=== PATIENT | male | born 1990 | race Caucasian/White ===

== ENCOUNTER 2019-01-02 13:27 | Emergency (ER) | payer SELFPAY ==
[2019-01-02 13:30] VITALS: RESP 16; TEMP 36.7
[2019-01-02] MEDS: Ibuprofen 600 MG TAB PO (14:43)
--- NOTE | 2019-01-02 14:48 | ED.GENADUL_ITS ---
Discharge Plan Disposition Patient Disposition: HOME Discharge Details Chief Complaint: Laceration Primary Care Provider: None,None ED Provider: Lopez Choi Home Meds and New Rx's Prescriptions: New cephalexin [Keflex] 500 mg capsule 500 mg PO TID 3 Days Qty: 9 RF: 0 Discharge Data Discharge Date/Time-TO BE ENTERED AT DEPARTURE: 01/02/19 14:56 Medical Decision Making Left ring finger laceration 1.5 cm ulnar aspect of finger,2.5 cm radial aspect. Digital block with 4 mL's of 1% lidocaine and ring tourniquet applied. Radial aspect may have slight venous injury. Otherwise all deep structures intact possible through and through injury but with thorough irrigation and mild probing it is difficult to determine as this does not seem to be a deep structure injury but there is a possibility. Wound was closed with 4 sutures on the radial aspect and 2 sutures on the ulnar aspect. Covered with bacitracin. Tdap updated. Given possible through and through injury patient placed on Keflex for 3 days. Return precautions discussed. HPI General Mode of arrival: ambulatory . Date/Time Provider Initiated Documentation: 01/02/19 14:25 . Limitations to Documentation: no limitations . Information obtained by: patient and RN notes reviewed . History of Present Illness 28 year old M presents to the emergency department with the chief complaint of finger laceration, described as moderate, with intensity rated at 7. Quality is described as sharp, and is localized to the left and upper extremity. Patient started experiencing this hour(s) (1) and it has been constant. Patient notes no other symptoms.. Patient did receive the following treatments prior to arrival, none Related Data Home Medications Medication Instructions Recorded Confirmed cephalexin [Keflex] 500 mg PO TID 3 Days #9 cap 01/02/19 Previous Rx's Medication Instructions Recorded cephalexin [Keflex] 500 mg PO TID 3 Days #9 cap 01/02/19 Allergies Allergy/AdvReac Type Severity Reaction Status Date / Time No Known Allergies Allergy Unverified 01/02/19 13:33 General Stated Complaint: Laceration BITA: 3 Review of Systems Cardiovascular Denies syncope and Denies lightheadedness Musculoskeletal Denies deformity, Denies limited range of motion and Denies numbness Integumentary/Breasts Reports as per HPI Neurologic Denies syncope, Denies numbness and Denies paresthesias PFS Social History Smoking/Tobacco Use Status: Never Alcohol Intake: never Drug use: Never Substance use type: does not use Do you feel safe at home: Yes Do you feel safe in your relationship?: Yes Exam Const General: cooperative and no acute distress Orientation: alert, awake and oriented x3 Limitations: mental status not altered Resp Effort & Inspection: normal respiratory effort and able to speak in complete sentences Cardio Rate: regular rate Rhythm: regular rhythm Neuro General: alert, awake, oriented x3, gait normal, tone normal, moves all extremities, normal light touch, pain and propioception and no focal motor deficits Motor: no movement abnormalities noted Sensory Exam: no sensory deficits noted Extrem Left upper extremity: hand Details: neuromotor exam normal, neurosensory exam abnormal Details: digital nerve sensory function abnormal Location: in the 4th digit (distal tip slight decrease in sensation), tendon exam normal, vascular exam Details: normal capillary refill, normal ROM of fingers, no swelling and laceration (4th digit to medial and lateral aspect); no crepitus Course Vital Signs Temperature 36.7 C 01/02/19 13:30 Respiratory Rate 16 01/02/19 13:30 Temperature 36.7 C 01/02/19 13:30 Respiratory Rate 16 01/02/19 13:30 Respiratory Effort Non-Labored 01/02/19 13:32 Oxygen Delivery Method Room Air 01/02/19 13:30 Oxygen Flow Rate 0 01/02/19 13:30 Pain Level 7 01/02/19 13:30
[2019-01-02 14:53] VITALS: BP 130/64; PULSE 84; RESP 16; TEMP 36.6; O2SAT 98
== END 2019-01-02 14:56 | disposition home or self-care (01) ==
PROVIDERS: Emergency Provider Nurse Practitioner Family
DX: S61.215A Laceration without foreign body of left ring finger without damage to nail, initial encounter (principal); W45.8XXA Other foreign body or object entering through skin, initial encounter
CPT/HCPCS: 12001; 90471; 99283

== ENCOUNTER 2019-01-12 10:22 | Emergency (ER) | payer SELFPAY ==
[2019-01-12 10:26] VITALS: BP 109/68; PULSE 66; RESP 20; TEMP 36.8; O2SAT 95
--- NOTE | 2019-01-12 10:35 | W.ED.GENAD ---
Discharge Plan Disposition Patient Disposition: HOME Condition: Good Discharge Details Chief Complaint: SutureRem Clinical Impression: Encounter for removal of sutures, Tingling Primary Care Provider: None,None ED Provider: Jony Saleem Discharge Instructions Additional Instructions: Your laceration has healed well. The sutures have been removed. However because of the continued tingling we will refer for orthopedic evaluation. Normally there is not much to be done about this, but sometimes nerve repair is possible. In the meantime I would recommend taking a multivitamin high in B complex vitamins. Massage the area gently daily. If you notice any redness drainage fever chills pain or weakness please return immediately. Medical Decision Making This is a pleasant 28-year-old male who presents for suture removal. 10 days ago he had a laceration to his nondominant hand ring finger, it was sutured with 6 simple interrupted sutures. Wound healing and reapproximation is excellent. Sensation is notably intact on the lateral aspect however there is still some decreased sensation and subjective tingling in the distal tip, with decreased two-point discrimination. Because of the continued tingling and decrease in sensation I do feel that referral for orthopedic evaluation is reasonable. Otherwise the wound is healed very well. All sutures were removed and he tolerated this well. No signs of tendon damage or disruption, no signs of infection. We will place an orthopedic referral for an outpatient basis. I have extensively reviewed the treatment plan and discharge instructions with the patient. I have addressed all patient concerns at this time. The patient was made aware of what symptoms to monitor for that would warrant a return to the emergency department. Discussed the plan with the patient, they demonstrate verbal understanding and agreement with our assessment and plan at this time. HPI General Date/Time Provider Initiated Documentation: 01/12/19 10:27. HPI Narrative: This is a pleasant 28-year-old male who presents for suture removal. 10 days ago he had 6 simple interrupted sutures placed for laceration. He has done well, no redness or pain. He does have tingling on the distal aspect of his ring finger on his left nondominant hand. He denies any other complaints. No other modifying factors. Related Data Allergies Allergy/AdvReac Type Severity Reaction Status Date / Time No Known Allergies Allergy Unverified 01/02/19 13:33 General Stated Complaint: SutureRem BITA: 4 Review of Systems Review of Systems All systems reviewed & are unremarkable except as noted in HPI and below [facility] Social History Smoking/Tobacco Use Status: Never Alcohol Intake: never Drug use: Never Substance use type: does not use Do you feel safe at home: Yes Do you feel safe in your relationship?: Yes Exam Narrative Exam Narrative: 1.Const: Well-nourished, Well-developed, appearing stated age 2.Eyes: PERRL, no conjunctival injection, and symmetrical lids. 3.ENT: Atraumatic external nose and ears. Moist MM. Neck: Symmetric, trachea midline, No thyromegaly. 4.CVS: +S1/S2, No murmurs or gallops. Peripheral pulses 2+ and equal in all extremities. Brisk capillary refill in all extremities. 5.RESP: Unlabored respiratory effort. Clear to auscultation bilaterally. No wheezes rales or rhonchi 6.GI: Soft, Nontender/Nondistended, No hepatosplenomegaly. No guarding or rebound. 7.MSK: Normocephalic/Atraumatic, Extremities w/o deformity or ttp No cyanosis or clubbing, Normal movement of all extremities. Normal flexion and extension of the affected finger. No signs of decreased strength. 8.Skin: Warm, Dry. No rashes or lesions. 9.Neuro: mold blower II-XII grossly intact. Sensation grossly intact, no focal neurologic deficits. Sensation is decreased on the tip of the affected ring finger on the left nondominant hand. Two-point discrimination is limited at the distal tip, greater than 5 mm. The remainder of the finger demonstrates normal sensation throughout, normal two-point discrimination up to 3 mm. No other significant abnormalities. Capillary refill brisk 10.Psych: (AAO) x3. Appropriate mood and affect Course Vital Signs Temperature 36.8 C 01/12/19 10:26 Pulse 66 01/12/19 10:26 Respiratory Rate 20 01/12/19 10:26 Blood Pressure 109/68 01/12/19 10:26 Pulse Oximetry 95 01/12/19 10:26 Temperature 36.8 C 01/12/19 10:26 Temperature Source Temporal Artery Scan 01/12/19 10:26 Pulse 66 01/12/19 10:26 Respiratory Rate 20 01/12/19 10:26 Respiratory Effort Non-Labored 01/12/19 10:26 Blood Pressure 109/68 01/12/19 10:26 Blood Pressure Position Sitting 01/12/19 10:26 Pulse Oximetry 95 01/12/19 10:26 Oxygen Delivery Method Room Air 01/12/19 10:26 Oxygen Flow Rate 0 01/12/19 10:26 Pain Level 0 01/12/19 10:26
--- NOTE | 2019-01-12 10:39 | ED.GENADUL_ITS ---
Discharge Plan Disposition Patient Disposition: HOME Condition: Good Discharge Details Chief Complaint: SutureRem Clinical Impression: Encounter for removal of sutures, Tingling Primary Care Provider: None,None ED Provider: Jony Saleem Discharge Instructions Additional Instructions: Your laceration has healed well. The sutures have been removed. However because of the continued tingling we will refer for orthopedic evaluation. Normally there is not much to be done about this, but sometimes nerve repair is possible. In the meantime I would recommend taking a multivitamin high in B complex vitamins. Massage the area gently daily. If you notice any redness drainage fever chills pain or weakness please return immediately. Medical Decision Making This is a pleasant 28-year-old male who presents for suture removal. 10 days ago he had a laceration to his nondominant hand ring finger, it was sutured with 6 simple interrupted sutures. Wound healing and reapproximation is excellent. Sensation is notably intact on the lateral aspect however there is still some decreased sensation and subjective tingling in the distal tip, with decreased two-point discrimination. Because of the continued tingling and decrease in sensation I do feel that referral for orthopedic evaluation is reasonable. Otherwise the wound is healed very well. All sutures were removed and he tolerated this well. No signs of tendon damage or disruption, no signs of infection. We will place an orthopedic referral for an outpatient basis. I have extensively reviewed the treatment plan and discharge instructions with the patient. I have addressed all patient concerns at this time. The patient was made aware of what symptoms to monitor for that would warrant a return to the emergency department. Discussed the plan with the patient, they demonstrate verbal understanding and agreement with our assessment and plan at this time. HPI General Date/Time Provider Initiated Documentation: 01/12/19 10:27 . HPI Narrative: This is a pleasant 28-year-old male who presents for suture removal. 10 days ago he had 6 simple interrupted sutures placed for laceration. He has done well, no redness or pain. He does have tingling on the distal aspect of his ring finger on his left nondominant hand. He denies any other complaints. No other modifying factors. Related Data Allergies Allergy/AdvReac Type Severity Reaction Status Date / Time No Known Allergies Allergy Unverified 01/02/19 13:33 General Stated Complaint: SutureRem BITA: 4 Review of Systems Review of Systems All systems reviewed & are unremarkable except as noted in HPI and below [facility] Social History Smoking/Tobacco Use Status: Never Alcohol Intake: never Drug use: Never Substance use type: does not use Do you feel safe at home: Yes Do you feel safe in your relationship?: Yes Exam Narrative Exam Narrative: 1.Const: Well-nourished, Well-developed, appearing stated age 2.Eyes: PERRL, no conjunctival injection, and symmetrical lids. 3.ENT: Atraumatic external nose and ears. Moist MM. Neck: Symmetric, trachea midline, No thyromegaly. 4.CVS: +S1/S2, No murmurs or gallops. Peripheral pulses 2+ and equal in all extremities. Brisk capillary refill in all extremities. 5.RESP: Unlabored respiratory effort. Clear to auscultation bilaterally. No wheezes rales or rhonchi 6.GI: Soft, Nontender/Nondistended, No hepatosplenomegaly. No guarding or rebound. 7.MSK: Normocephalic/Atraumatic, Extremities w/o deformity or ttp No cyanosis or clubbing, Normal movement of all extremities. Normal flexion and extension of the affected finger. No signs of decreased strength. 8.Skin: Warm, Dry. No rashes or lesions. 9.Neuro: medical coding instructor II-XII grossly intact. Sensation grossly intact, no focal neurologic deficits. Sensation is decreased on the tip of the affected ring finger on the left nondominant hand. Two-point discrimination is limited at the distal tip, greater than 5 mm. The remainder of the finger demonstrates normal sensation throughout, normal two-point discrimination up to 3 mm. No other sig nificant abnormalities. Capillary refill brisk 10.Psych: (AAO) x3. Appropriate mood and affect Course Vital Signs Temperature 36.8 C 01/12/19 10:26 Pulse 66 01/12/19 10:26 Respiratory Rate 20 01/12/19 10:26 Blood Pressure 109/68 01/12/19 10:26 Pulse Oximetry 95 01/12/19 10:26 Temperature 36.8 C 01/12/19 10:26 Temperature Source Temporal Artery Scan 01/12/19 10:26 Pulse 66 01/12/19 10:26 Respiratory Rate 20 01/12/19 10:26 Respiratory Effort Non-Labored 01/12/19 10:26 Blood Pressure 109/68 01/12/19 10:26 Blood Pressure Position Sitting 01/12/19 10:26 Pulse Oximetry 95 01/12/19 10:26 Oxygen Delivery Method Room Air 01/12/19 10:26 Oxygen Flow Rate 0 01/12/19 10:26 Pain Level 0 01/12/19 10:26
[2019-01-12 16:34] VITALS: BP 109/68; PULSE 66; RESP 20; TEMP 36.8; O2SAT 95
== END 2019-01-12 10:46 | disposition home or self-care (01) ==
PROVIDERS: Emergency Provider Student in an Organized Health Care Education/Training Program
DX: R20.2 Paresthesia of skin (principal); S61.215D Laceration without foreign body of left ring finger without damage to nail, subsequent encounter; X58.XXXD Exposure to other specified factors, subsequent encounter; Z48.02 Encounter for removal of sutures
CPT/HCPCS: 99282

== ENCOUNTER 2020-02-23 10:11 | Emergency (ER) | payer SELFPAY ==
[2020-02-23] VITALS (16 sets, daily range): BP systolic 119–133; BP diastolic 71–81; PULSE 55–78; RESP 11–19; TEMP 36; O2SAT 97–99
--- NOTE | 2020-02-23 10:00 | RT.EKG_ITS ---
APPROVED REPORT Exam: Resting ECG Patient Location: E HR:64 bpm ECG Measurements Heart Rate 64 AXIS MS 141 P 72 QRSd 94 QRS 59 QT 387 T 34 QTc 399 <Conclusion> Sinus rhythm...normal P axis, V-rate 60- 99 ST elev, probable normal early repol pattern...ST elevation, age<55
--- NOTE | 2020-02-23 10:30 | W.ED.GENAD ---
Discharge Plan Disposition Patient Disposition: HOME Condition: Stable Discharge Details Chief Complaint: Chest Pain Clinical Impression: Pleuritic chest pain Primary Care Provider: None,None ED Provider: Lydia Mendiola Home Meds and New Rx's Prescriptions: New ibuprofen 800 mg tablet 800 mg PO Q8H PRN (Reason: pain) 7 Days Qty: 20 RF: 0 Discharge Instructions Instructions: Chest Pain (ED), Costochondritis (ED) Additional Instructions: Follow up with primary care provider in 3-5 days. Return to ED sooner if any worsening or concerns. Increase oral fluids. Please take Tylenol or Ibuprofen with food every 4-6 hours as needed for pain and swelling. Return to the ED for any worsening chest pain, increased shortness of breath, sweatiness or any concerns. Discharge Data Discharge Date/Time-TO BE ENTERED AT DEPARTURE: 02/23/20 12:12 Medical Decision Making 29-year-old male presents to the ER with left-sided chest pain which he describes as sharp in nature began this morning around 8:00 upon awakening. He describes pain as sharp intermittent and stabbing and nonradiating. Worse with inspiration and movement. Denies any nausea vomiting, shortness of breath or cough. 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 No significant family history or past medical history. Denies any fever chills. At this time work-up ordered including CBC, CMP, mag, troponin x2, EKG was obtained and read by Digna Peterson MD see her official reading. Chest x-ray two-view ordered aspirin 325 and 50 mg Toradol. Frontal diagnosis includes but not limited to [place], CAD, NSTEMI, pneumothorax, pleurisy, pneumonia, PE TECHNIQUE: Imaging protocol: XR of the chest Views: 2 views. COMPARISON: No relevant prior studies available. FINDINGS: Lungs: Unremarkable. No consolidation. Pleural space: Unremarkable. No pleural effusion. No pneumothorax. Heart/Mediastinum: Unremarkable. No cardiomegaly. Bones/joints: Unremarkable. IMPRESSION: No acute findings. 1151: Upon patient reevaluation his pain is much improved after the Toradol injection, initial work-up is largely benign, chest x-ray shows nothing acute as noted above. Initial troponin is negative CBC and CMP are largely within normal limits. Glucose was 115, total bilirubin 1.6. At this time I feel it is safe to cancel a second troponin, he is remained hemodynamically stable throughout stay. Normal sinus rhythm with no STEMI. Will place patient on follow-up list for PCP. Discussed home care including taking ibuprofen 8 or milligrams 4 times a day as needed for pain rest ice and follow-up. Discuss strict return instructions, verbalized understanding. HPI General Mode of arrival: ambulatory. Date/Time Provider Initiated Documentation: 02/23/20 10:14. Limitations to Documentation: no limitations. Information obtained by: patient. HPI Narrative: 29-year-old male presents to the ER with left-sided chest pain which he describes as sharp in nature began this morning around 8:00 upon awakening. He describes pain as sharp intermittent and stabbing and nonradiating. Worse with inspiration and movement. Denies any nausea vomiting, shortness of breath or cough. 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 No significant family history or past medical history. Denies any fever chills. Related Data Home Medications Medication Instructions Recorded Confirmed ibuprofen 800 mg PO Q8H PRN 7 Days #20 tab 02/23/20 Previous Rx's Medication Instructions Recorded ibuprofen 800 mg PO Q8H PRN 7 Days #20 tab 02/23/20 Allergies Allergy/AdvReac Type Severity Reaction Status Date / Time No Known Allergies Allergy Unverified 02/23/20 10:19 General Stated Complaint: Chest Pain BITA: 2 Review of Systems Narrative: Constitutional: Negative for weight loss, alert and oriented, well groomed, normal body habitus, appears comfortable. HEENT: Denies trauma, headaches, blurry vision, nasal discharge, sore throat, trouble swallowing. Chest: Denies palpitations, irregular rhythm, hypertension. Reports left-sided sharp chest pain intermittent since 830. Respiratory: Denies cough, hemoptysis. Reports pain with deep breathing. GI: Denies abdominal pain, nausea, vomiting, diarrhea, constipation. : Denies dysuria, hematuria, flank pain, rectal bleeding. Neuro: Denies dizziness, blurry vision, weakness, syncope, headache or facial numbness. Hematologic: Denies easy bruising, intolerance to heat or cold, hair loss. [facility] Social History Smoking/Tobacco Use Status: Never Alcohol Intake: current Alcohol Intake frequency: 3 or more drinks per day Drug use: Never Substance use type: does not use Do you feel safe at home: Yes Do you feel safe in your relationship?: Yes Exam Narrative Exam Narrative: Constitutional: Alert and oriented x3. Appears stated age. Normal body habitus. Head: Normocephalic, no trauma. Eyes: Pupils PERRLA, Red reflex noted, EOM's intact. Eyelids symmetrical without lesions, discharge, or swelling. ENT: Bilateral TM's WNL, External ear normal to inspection, no mastoid TTP, swelling, or erythema, Nasal turbinates WNL, no nasal discharge. Normal dentition, Posterior pharynx WNL, no exudate. Chest: RRR, Normal S1, S2, distal pulses intact. Chest pain is reproducible with palpation on the left side. No palpable rib fractures, crepitus or step-off. Resp: Lungs clear to auscultation bilaterally, no wheezes, rales, or rhonchi. Slightly diminished on the left. Musculoskeletal: Normal gait, 5/5 strength to all four extremities. Skin: No suspicious rashes or lesions. Capillary refill less than 2 sec. Neurologic: Cranial nerves II-XII intact. Alert and oriented x 3. DTR's intact. Hematologic/Lymphatic: No ecchymosis, no lymphadenopathy. Course Vital Signs Vital signs: Vital Signs Temperature 36 C L 02/23/20 10:16 Pulse 71 02/23/20 10:16 Respiratory Rate 16 02/23/20 10:16 Blood Pressure 133/81 02/23/20 10:16 Pulse Oximetry 99 02/23/20 10:16 Temperature 36 C L 02/23/20 10:16 Pulse 71 02/23/20 10:16 Respiratory Rate 16 02/23/20 10:16 Respiratory Effort Non-Labored 02/23/20 10:18 Blood Pressure 133/81 02/23/20 10:16 Blood Pressure Position Supine 02/23/20 10:16 Pulse Oximetry 99 02/23/20 10:16 Oxygen Delivery Method Room Air 02/23/20 10:16 Oxygen Flow Rate 0 02/23/20 10:16 Pain Level 8 02/23/20 10:16
[2020-02-23] MEDS: Ketorolac 15 MG/ML VIAL IVP (10:46)
[2020-02-23] MEDS: Aspirin 81 MG CHEW 324 MG CH (10:46)
[2020-02-23 10:52] LABS: Abs Immature Grans 0.01 k/cumm (0.0-0.09); Absolute Basophil Count 0.01 k/cumm (0.0-0.2); Absolute Lymphocyte Count 2.39 k/cumm (1.2-3.4); Absolute Monocyte Count 0.45 k/cumm (0.11-0.7); Absolute Neutrophil Count 2.61 k/cumm (1.2-6.7); Basophils % 0.2; Eosinophils % 3.5; HCT 44.6 % (40.0-50.0); HGB 16.1 g/dL (13.5-17.5); Immature Grans % 0.2 %; Lymphocytes % 42.2; Mean Corp. HGB Concentration 36.1 g/dL (32.0-36.0); Mean Corpuscular Hemoglobin 32.9 pg (27.0-33.0); Mean Platelet Volume 11.2 fL (8.0-11.0); Monocytes % 7.9; Platelet Count 207 x1000/uL (130-400); RBC Distribution Width 11.9 % (11.8-14.1); White Blood Cell Count 5.67 k/cumm (4.4-10.8)
--- NOTE | 2020-02-23 11:08 | DI.RAD_ITS ---
EXAM: XR CHEST 2V PA LATERAL CLINICAL HISTORY: Left sided chest pain TECHNIQUE: 2D digital imaging was performed. COMPARISON: No exams were available for comparison FINDINGS: MEDIASTINUM: Normal. HEART: Normal. PULMONARY VASCULATURE: Normal. LUNGS: Clear. PLEURAL SPACE: No pleural effusion or pneumothorax. BONE:Within normal limits for the patient's age. OTHER FINDINGS:Normal. IMPRESSION: No acute pulmonary findings. DATA REPOSITORY: RADIATION DOSE DELIVERED:
[2020-02-23 11:10] LABS: ALT 21 U/L (16-63); AST 20 U/L (15-37); Albumin 4.7 g/dL (3.4-5.0); Alkaline Phosphatase 56 U/L (46-116); Anion Gap 7.7 mmol/L (3-11); BUN 16 mg/dL (7-18); Bilirubin, Total 1.6 mg/dL (0.2-1.0); CO2 30.3 mmol/L (21.0-32.0); CREATININE 1.09 mg/dL (0.70-1.30); Chloride 102 mmol/L (98-107); Glucose 115 mg/dL (74-106); Magnesium 2.2 mg/dL (1.8-2.4); Potassium 3.9 mmol/L (3.5-5.1); Sodium 140 mmol/L (136-145); Total Protein 7.8 g/dL (6.4-8.2)
[2020-02-23 11:11] LABS: Troponin I < 0.05 ng/mL (<0.06)
--- NOTE | 2020-02-23 11:18 | DI.VRAD_ITS ---
PROCEDURE INFORMATION: Exam: XR Chest, 2 Views Exam date and time: 02/23/2020 11:05 AM Age: 29 years old Clinical indication: Other: Left sided chest pain TECHNIQUE: Imaging protocol: XR of the chest Views: 2 views. COMPARISON: No relevant prior studies available. FINDINGS: Lungs: Unremarkable. No consolidation. Pleural space: Unremarkable. No pleural effusion. No pneumothorax. Heart/Mediastinum: Unremarkable. No cardiomegaly. Bones/joints: Unremarkable. IMPRESSION: No acute findings. Dictated and Authenticated by: Iliana Robertson MD. Ordering:STACY Freeman MD
[2020-02-23 11:25] LABS: D-Dimer 118 ng/mlFEU (<500)
--- NOTE | 2020-02-23 11:57 | NUR.NOTE ---
Referral to Care Management to establish pcp also chest pain complaint.Nursing Note:
--- NOTE | 2020-02-25 10:45 | CMPROGNOTE_ITS ---
- If Service Date Differs Date of service: 02/25/20 Time of Service: 10:45 Care Management Progress Note coordinates a referral to Dr. Bunn, [facility], of [facility], to assist patient in establishing care with a primary care doctor. A referral is also made to [facility] to enlist their help in exploring health insurance options, as Lanre is currently uninsured. Lanre is aware of both referrals.
== END 2020-02-23 12:12 | disposition home or self-care (01) ==
LOC: ER 11:58
PROVIDERS: Emergency Provider Registered Nurse Emergency
DX: R07.81 Pleurodynia (principal)
CPT/HCPCS: 80053; 93005; 96374; 99284; 71046; 83735; 84484; 85025; 85379; 93010; J1885

== ENCOUNTER 2021-02-23 21:52 | Emergency (ER) | payer SELFPAY ==
--- NOTE | 2021-02-23 21:45 | RT.EKG_ITS ---
APPROVED REPORT Exam: Resting ECG Reason for Exam: Palpitations Patient Location: E HR:73 bpm ECG Measurements Heart Rate 73 AXIS ME 146 P 74 QRSd 92 QRS 66 QT 368 T 42 QTc 407 Conclusion Sinus rhythm...normal P axis, V-rate 60- 99 Physician: elevation in V3, unchanged from prior, likely repol. no stemi
[2021-02-23 22:04] VITALS: BP 139/79; PULSE 87; RESP 16; TEMP 37.1; O2SAT 97
--- NOTE | 2021-02-23 22:13 | ED.GENADUL_ITS ---
Discharge Plan Disposition Patient Disposition: HOME Condition: Stable Discharge Details Clinical Impression: Intermittent palpitations Primary Care Provider: Chasidy Ortiz ED Provider: Lydia Mendiola Home Meds and New Rx's Prescriptions: No Action No Known Home Meds RF: 0 Discharge Instructions Instructions: Heart Palpitations (ED) Additional Instructions: The cardiac work-up and lab are all within normal limits. I do suspect that these are what we talked about is occasional ventricular beat which are very common and can be caused by various things including dehydration, energy drinks, caffeine. Follow up with primary care provider in 3-5 days if needed. Return to ED sooner if any worsening or concerns. Increase oral fluids. Referrals: Chasidy Ortiz, TECHNOLOGY DEVELOPMENT INTERN [Primary Care Provider] - Discharge Data Discharge Date/Time-TO BE ENTERED AT DEPARTURE: 02/23/21 23:15 Medical Decision Making 30-year-old male presents to the ER with chief complaint of palpitations which have become more frequent over the last couple of. Patient reports 1 abnormal beat every few minutes in his chest. He reports associated tightness, denies any dizziness, shortness of breath intolerance to exercise. He reports he has had increased intake of energy drinks to a week since starting the new job he also drinks a cup of coffee every morning. He does endorse having 1 beer earlier today, denies any other associated symptoms. No cardiac history. EKG was reviewed by Wilmer Saleem ER attending, please see his official report review, normal sinus rhythm. Labs are largely unremarkable troponin within normal limit, patient has no complaints of chest pain TSH also within normal limits. Discussed lab results with patient who verbalizes understanding discuss strict return instructions and home care and follow-up with PCP. Patient remained hemodynamically stable throughout stay. HPI General Mode of arrival: ambulatory . Date/Time Provider Initiated Documentation: 02/23/21 21:54 . Limitations to Documentation: no limitations . Information obtained by: patient and RN notes reviewed . HPI Narrative: 30-year-old male presents to the ER with chief complaint of palpitations which have become more frequent over the last couple of. Patient reports 1 abnormal beat every few minutes in his chest. He reports associated tightness, denies any dizziness, shortness of breath intolerance to exercise. He reports he has had increased intake of energy drinks to a week since starting the new job he also drinks a cup of coffee every morning. He does endorse having 1 beer earlier today, denies any other associated symptoms. No cardiac history. Related Data Home Medications Medication Instructions Recorded Confirmed Unknown [No Known Home Meds] 04/28/20 02/23/21 Allergies Allergy/AdvReac Type Severity Reaction Status Date / Time No Known Allergies Allergy Verified 04/28/20 08:02 General Stated Complaint: Palpitatns BITA: 3 Review of Systems Narrative: Constitutional: Negative for weight loss, alert and oriented, well groomed, normal body habitus, appears comfortable. HEENT: Denies trauma, headaches, blurry vision, nasal discharge, sore throat, trouble swallowing. Chest: Denies chest pain, irregular rhythm, hypertension. Positive palpitations. Respiratory: Denies Shortness of breath, cough, hemoptysis. GI: Denies abdominal pain, nausea, vomiting, diarrhea, constipation. : Denies dysuria, hematuria, flank pain, rectal bleeding. Neuro: Denies dizziness, blurry vision, weakness, syncope, headache or facial numbness. Hematologic: Denies easy bruising, intolerance to heat or cold, hair loss. [facility] Medical History Alcohol intake above recommended sensible limits without complication Costochondritis Family History Mother No problems noted. Father Alcohol abuse Sister No problems noted. Brother No problems noted. Brother No problems noted. Brother No problems noted. Son No problems noted. Daughter No problems noted. Maternal Grandfather , 30'S Cancer Paternal Grandfather No problems noted. Maternal Grandmother , 70'S No problems noted. Paternal Grandmother Breast cancer Social History Smoking/Tobacco Use Status: Never Second Hand Exposure: Yes Smoking risk assessment performed?: Yes Alcohol Intake: current Alcohol Intake frequency: 3 or more drinks per day Drug use: Daily Substance use type: marijuana Caregiver/Support person: No Household members: spouse and children Housing: apartment Pets and animals: Yes Pets and animals: cat(s) Sexually active: Yes Do you think of yourself as: straight/heterosexual Current gender identity: male What is your relationship status?: How often do you talk on the phone with friends or family?: three or more times per week How often do you get together with friends or relatives?: once per week How often do you attend evangelical or christianity services?: decline to answer Do you belong to any clubs or organized social groups?: no Panel score (0-1 are the most socially isolated patients): 2 Kristen/Christian: NONE Special kristen needs: No Seatbelt use: always Helmet use: Yes Helmet use: always Drive intox or ride w/intox 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 Appears stated age. Normal body habitus. Head: Normocephalic, no trauma. Eyes: Pupils PERRLA, Red reflex noted, EOM's intact. Eyelids symmetrical without lesions, discharge, or swelling. ENT: Bilateral TM's WNL, External ear normal to inspection, no mastoid TTP, swelling, or erythema, Nasal turbinates WNL, no nasal discharge. Normal dentition, Posterior pharynx WNL, no exudate. Chest: RRR, Normal S1, S2, distal pulses intact. Visualized 1 occasional PVC during my exam. Resp: Lungs clear to auscultation bilaterally, no wheezes, rales, or rhonchi. Musculoskeletal: Normal gait, 5/5 strength to all four extremities. Skin: No suspicious rashes or lesions. Capillary refill less than 2 sec. Neurologic: Cranial nerves II-XII intact. Alert and oriented x 3. DTR's intact. Hematologic/Lymphatic: No ecchymosis, no lymphadenopathy. Course Vital Signs Vital signs: Vital Signs Temperature 37.1 C 02/23/21 22:04 Pulse 87 02/23/21 22:04 Respiratory Rate 16 02/23/21 22:04 Blood Pressure 139/79 02/23/21 22:04 Pulse Oximetry 97 02/23/21 22:04 Temperature 37.1 C 02/23/21 22:04 Temperature Source Tympanic 02/23/21 22:04 Pulse 87 02/23/21 22:04 Respiratory Rate 16 02/23/21 22:04 Blood Pressure 139/79 02/23/21 22:04 Blood Pressure Position Sitting 02/23/21 22:04 Pulse Oximetry 97 02/23/21 22:04 Oxygen Delivery Method Room Air 02/23/21 22:04 Oxygen Flow Rate 0 02/23/21 22:04 Pain Level 0 02/23/21 22:04
[2021-02-23] MEDS: Normal Saline 1,000 ML 1000 ML IV (22:32)
[2021-02-23 22:38] LABS: Abs Immature Grans 0.02 10^3/uL (0.0-0.06); Absolute Basophil Count 0.04 10^3/uL (0.0-0.2); Absolute Eosinophil Count 0.26 10^3/uL (0.0-0.7); Absolute Lymphocyte Count 2.37 10^3/uL (1.2-3.4); Absolute Monocyte Count 0.52 10^3/uL (0.1-0.8); Absolute Neutrophil Count 2.32 10^3/uL (1.2-6.7); Basophils % 0.7; Eosinophils % 4.7; HCT 41.8 % (40.0-50.0); HGB 14.7 g/dL (13.5-17.5); Immature Grans % 0.4; Lymphocytes % 42.9; MCH 32.2 pg (27.0-33.0); MCHC 35.2 % (32.0-36.0); MCV 91.7 fL (80-95); MPV 11.2 fL (8.0-11.0); Monocytes % 9.4; Neutrophils % 41.9; Nucleated RBC 0 %; Platelet Count 188 10^3/uL (130-400); RBC 4.56 10^6/uL (4.36-5.78); RDW 11.6 % (11.8-14.1); RDW-SD 39.1 fL; WBC 5.53 10^3/uL (4.4-10.8)
[2021-02-23 23:00] LABS: ALT 30 U/L (16-63); AST 23 U/L (15-37); Albumin 4.4 g/dL (3.4-5.0); Alkaline Phosphatase 58 U/L (46-116); Anion Gap 8.5 mmol/L (3-11); BUN 22 mg/dL (7-18); Bilirubin, Total 0.8 mg/dL (0.2-1.0); CO2 28.5 mmol/L (21.0-32.0); Chloride 104 mmol/L (98-107); Glucose 112 mg/dL (74-106); Potassium 3.7 mmol/L (3.5-5.1); Sodium 141 mmol/L (136-145); TSH (W/Ref FT4) 3.13 uIU/mL (0.36-3.74); Total Protein 7.5 g/dL (6.4-8.2); Troponin I < 0.05 ng/mL (<0.06)
[2021-02-23 23:12] VITALS: BP 139/79; PULSE 87; RESP 16; TEMP 37.1; O2SAT 97
== END 2021-02-23 23:15 | disposition home or self-care (01) ==
PROVIDERS: Emergency Provider Registered Nurse Emergency
DX: R00.2 Palpitations (principal)
CPT/HCPCS: 36415; 80053; 93005; 96360; 99284; 83735; 84443; 84484; 85025; 93010; 99283

== ENCOUNTER 2021-03-09 08:34 | Outpatient (CLI) | payer OTHER, SELFPAY ==
--- NOTE | 2021-03-24 11:43 | ZIOP_ITS ---
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 Minimum was 42, maximum 156 There were rare atrial and ventricular beats There was no atrial fibrillation, no high-grade, no pauses greater than 2 seconds Patient events corresponded to sinus rhythm in general, occasionally to sinus rhythm with atrial and ventricular ectopic beats
== END 2021-03-09 08:35 | disposition home or self-care (01) ==
PROVIDERS: Visit Provider Nurse Practitioner Family
DX: R00.2 Palpitations (principal)
CPT/HCPCS: 93246